=== PATIENT | female | born 1990 | race Caucasian/White ===

== ENCOUNTER 2023-09-12 05:45 | Inpatient (IN) | payer OTHER ==
[2023-09-12] MEDS ORDERED: ELECTROLYTE-148 SOLN 500 ML IV ONE (06:00)
[2023-09-12] MEDS ORDERED: CITRIC ACID/SODIUM CITRATE 30 ML UNIT-DOSE CUP PO ONE (06:00)
[2023-09-12] MEDS ORDERED: ELECTROLYTE-148 SOLN 1,000 ML IV SCH (06:30)
[2023-09-12 06:40] VITALS: BMI 25.8
[2023-09-12] MEDS ORDERED: OXYTOCIN 10 UNITS/ML VIAL ONE (07:35)
[2023-09-12] MEDS ORDERED: SODIUM CHLORIDE 0.9% P/F 10 ML VIAL IJ ONE ×2 (07:35→07:42)
[2023-09-12] MEDS ORDERED: DEXAMETHASONE SOD PHOSPHATE 4 MG/1 ML VIAL ONE (07:35)
[2023-09-12] MEDS ORDERED: ceFAZolin SODIUM 1 GM VIAL ONE (07:35)
[2023-09-12] MEDS ORDERED: METOCLOPRAMIDE HCL INJECTION 10 MG/2 ML VIAL ONE (07:35)
[2023-09-12] MEDS ORDERED: ONDANSETRON 4 MG/2 ML VIAL ONE (07:35)
[2023-09-12] MEDS ORDERED: KETOROLAC TROMETHAMINE 30 MG/1 ML VIAL ONE (07:35)
[2023-09-12] MEDS ORDERED: PHENYLEPHRINE HCL 10 MG/1 ML SINGLE DOSE VIAL ONE (07:40)
[2023-09-12] MEDS ORDERED: ePHEDrine SULFATE 50 MG/1 ML AMPULE ONE (07:42)
[2023-09-12] MEDS ORDERED: morphine SULFATE/PF 1 MG/2 ML (2cc Syringe - QUVA) ONE (07:44)
[2023-09-12] MEDS ORDERED: FENTANYL CITRATE/PF 50 MCG/ML VIAL ONE (07:45)
[2023-09-12] MEDS: OXYTOCIN 20 UNITS in 0.9% NS 20 UNIT/1,000 ML INFUS.BAG IV SCH ×2 (09:20→15:41)
[2023-09-12] MEDS ORDERED: OXYTOCIN 20 UNITS in 0.9% NS 20 UNIT/1,000 ML INFUS.BAG IV ONE (09:24)
[2023-09-12] MEDS ORDERED: METHYLERGONOVINE MALEATE 0.2 MG/1 ML AMP IM PRN (09:39)
[2023-09-12] MEDS ORDERED: SENNOSIDES/DOCUSATE COMBO (SENNA PLUS) TABLET (UD) PO PRN (09:39)
[2023-09-12] MEDS ORDERED: IBUPROFEN 800 MG/8 ML IJ IVPB PRN (09:39)
[2023-09-12] MEDS ORDERED: ACETAMINOPHEN 325 MG TABLET (FP) PO PRN (09:39)
[2023-09-12] MEDS ORDERED: ACETAMINOPHEN 1000 MG/100 ML BAG IVPB PRN (09:42)
[2023-09-12] MEDS: ELECTROLYTE-148 SOLN 1,000 ML IV SCH (10:53)
[2023-09-12] MEDS: FERROUS SO4 325 MG TABLET (FP) PO SCH (10:54)
[2023-09-12] MEDS: PRENATAL VITAMINS W/ FOLIC ACID TABLET (FP) PO SCH (10:54)
[2023-09-12] MEDS ORDERED: oxyCODONE HCL 5 MG TABLET PO PRN (21:40)
[2023-09-13 08:05] LABS: BASO % 0.3 % (0-2.0); EOS % 0.2 % (0-4.5); HEMATOCRIT 30.4 % (32.4-45.2); LYMPH % 14.9 % (8-40); MCH 29.3 pg (25.7-33.7); MEAN CELL VOLUME 88.7 fl (80-96); MEAN PLT VOLUME 7.6 fl (7.5-11.1); MONO % 4.7 % (3.8-10.2); NEUT % 79.9 % (42.8-82.8); PLATELET COUNT 308 10^3/uL (134-434); RBC 3.43 M/mm3 (3.60-5.2); RDW 13.8 % (11.6-15.6); WHITE BLOOD COUNT 12.7 K/mm3 (4.0-10.0)
[2023-09-13] MEDS ORDERED: BISACODYL 10 MG SUPP.RECT RC PRN (09:40)
[2023-09-13] MEDS: PRENATAL VITAMINS W/ FOLIC ACID TABLET (FP) PO SCH (11:08)
[2023-09-13] MEDS: FERROUS SO4 325 MG TABLET (FP) PO SCH (11:08)
[2023-09-13] MEDS: OXYTOCIN 20 UNITS in 0.9% NS 20 UNIT/1,000 ML INFUS.BAG IV SCH (11:20)
[2023-09-13] MEDS: ELECTROLYTE-148 SOLN 1,000 ML IV SCH (11:20)
[2023-09-13] MEDS: SIMETHICONE 80 MG TAB.CHEW (FP) PO PRN ×2 (16:33→20:14)
[2023-09-13] MEDS: IBUPROFEN 600 MG TABLET (FP) PO PRN (16:33)
[2023-09-13] MEDS: oxyCODONE HCL 5 MG TABLET PO PRN (20:14)
[2023-09-14] MEDS: SIMETHICONE 80 MG TAB.CHEW (FP) PO PRN (08:41)
[2023-09-14] MEDS: IBUPROFEN 600 MG TABLET (FP) PO PRN (08:43)
[2023-09-14] MEDS: PRENATAL VITAMINS W/ FOLIC ACID TABLET (FP) PO SCH (09:39)
[2023-09-14] MEDS: FERROUS SO4 325 MG TABLET (FP) PO SCH (09:39)
[2023-09-14] MEDS: oxyCODONE HCL 5 MG TABLET PO PRN (20:24)
[2023-09-14 23:31] VITALS: PULSE 92; RESP 18; TEMP 97.6
[2023-09-15] MEDS: IBUPROFEN 600 MG TABLET (FP) PO PRN (06:39)
[2023-09-15] MEDS: PRENATAL VITAMINS W/ FOLIC ACID TABLET (FP) PO SCH (09:30)
[2023-09-15] MEDS: SIMETHICONE 80 MG TAB.CHEW (FP) PO PRN (09:30)
[2023-09-15] MEDS: FERROUS SO4 325 MG TABLET (FP) PO SCH (09:30)
[2023-09-15 09:58] VITALS: BP 100/55
== END 2023-09-15 11:25 | disposition home or self-care (01) | DRG 788 ==
LOC: JLDR 05:45 → J3W 10:40
PROVIDERS: ADMIT Obstetrics & Gynecology; ATTEND Obstetrics & Gynecology
PROC: 10D00Z1 Extraction of Products of Conception, Low, Open Approach (ICD-10-PCS; principal; 2023-09-12)
DX: O34.211 Maternal care for low transverse scar from previous cesarean delivery (principal); Z3A.39 39 weeks gestation of pregnancy; Z37.0 Single live birth
CPT/HCPCS: 36415; 85025; 86850; 86870; 86880; 86900; 86901; 86902; 88307-TC